=== PATIENT | male | born 1980 | race Caucasian/White ===

== ENCOUNTER → 2018-01-31 09:04 | Outpatient (REF) | payer SELFPAY | LOC: OM 09:04 | PROVIDERS: PCP Family Medicine; Visit Provider Nurse Practitioner Family | DX: Z02.83 Encounter for blood-alcohol and blood-drug test (principal) ==

== ENCOUNTER 2024-01-13 10:35 | Emergency (ER) | payer OTHER, SELFPAY ==
[2024-01-13] VITALS (34 sets, daily range): BP systolic 117–162; BP diastolic 62–99; PULSE 40–64; RESP 10–23; TEMP 2.4–37; O2SAT 98–100
--- NOTE | 2024-01-13 10:30 | RT.EKG_ITS ---
APPROVED REPORT Exam: Resting ECG Reason for Exam: Altered mental status Patient Location: E HR:43 bpm ECG Measurements Heart Rate 43 AXIS TX 162 P 55 QRSd 87 QRS 59 QT 461 T 62 QTc 389 Conclusion Sinus bradycardia...rate< 60
--- NOTE | 2024-01-13 10:44 | ED.GENADUL_ITS ---
Discharge Plan Disposition Patient Disposition: Transfer-Acute Inpatient Care Specific Acute Inpt Facility: [facility] Condition: Critical Discharge Details Clinical Impression: Intracranial bleed Primary Care Provider: Unknown,Unknown ED Provider: Gregoria Cutler Home Meds and New Rx's Prescriptions: No Action ibuprofen [Advil Liqui-Gel] 200 MG capsule 400 mg PO DAILY naproxen 500 mg tablet 500 mg PO QD-BID PRN Discharge Data Discharge Date/Time-TO BE ENTERED AT DEPARTURE: 01/13/24 14:15 HPI <Gregoria Cutler NP - Last Filed: 01/13/24 16:25> General Mode of arrival: EMS . Date/Time Provider Initiated Documentation: 01/13/24 10:43 . Limitations to Documentation: altered mental status (ANO x 3 however slow to respond) . Information obtained by: patient, EMS, RN notes reviewed and old records reviewed . HPI Narrative: 43-year-old male presents to the ER with chief complaint of altered mental status via EMS. Per EMS report patient's mother concerned that he is altered and slow to respond over the last couple of days. He does have a history of migraine headaches over the last year and a history of a AV malformation he reports worsening headaches over the last couple of days. He also reports blurry vision to his left eye. Denies any chest pain fever chills shortness of breath nausea vomiting no recent head injuries. On exam no focal motor neurodeficits noted, no facial droop, EOMs intact, no nystagmus noted, no pronator drift, no leg drop distal sensation intact. Intact dorsal pedal flexion and extension. Patient received 500 cc normal saline prior to arrival by EMS, 18-gauge left AC initiated, BGL is 119 [employer]. Initial presentation it does appear thin, slightly cachectic and dry mucous membranes. No signs of trauma. Related Data Home Medications ?Medication ?Instructions ?Recorded ?Confirmed ibuprofen 200 mg capsule (Advil 400 mg PO DAILY 01/12/15 01/13/24 Liqui-Gel) naproxen 500 mg tablet 500 mg PO QD-BID PRN 01/13/24 01/13/24 Allergies Allergy/AdvReac Type Severity Reaction Status Date / Time lactose AdvReac Other (See Unverified 01/13/24 13:00 Comment) General Stated Complaint: AMS/LOC ERNESTINA: 3 Review of Systems <Gregoria Cutler NP - Last Filed: 01/13/24 16:25> All systems reviewed & are unremarkable except as noted in HPI and below Constitutional Constitutional: Reports as per HPI, Reports headache(s), Reports poor appetite and Denies weakness Eyes Eyes: Reports blurry vision and Denies loss of vision ENT Ears, Nose, Mouth, and Throat: Reports as per HPI, Denies dizziness, Denies otalgia, Reports headache(s) and Denies disequilibrium Cardiovascular Cardiovascular: Denies chest pain, Denies syncope and Denies dyspnea Respiratory Respiratory: Denies cough, Denies dyspnea, Denies stridor and Denies wheezing Gastrointestinal Gastrointestinal: Denies abdominal pain, Denies diarrhea, Denies nausea and Denies vomiting Genitourinary Genitourinary: Denies dysuria Musculoskeletal Musculoskeletal: Denies abnormal gait and Denies tingling Neurologic Neurologic: Reports as per HPI, Denies abnormal gait, Reports behavioral changes, Denies dizziness, Denies syncope, Reports headache(s), Denies lack of coordination, Denies localized weakness, Denies loss of vision, Reports memory loss, Reports other visual disturbances, Denies radicular pain, Denies tingling, Denies paresthesias, Denies disequilibrium and Denies weakness Psychiatric Psychiatric: Reports behavioral changes and Reports memory loss Allergic/Immunologic Allergic/Immunologic: Denies wheezing Exam <Gregoria Cutler NP - Last Filed: 01/13/24 16:25> Narrative Exam Narrative: Constitutional: Alert and oriented x3, slightly slow to respond. Appears stated age. Very thin body habitus. Head: Normocephalic, no trauma. Eyes: Pupils PERRL, Red reflex noted, EOM's intact. Eyelids symmetrical without lesions, discharge, or swelling. ENT: Bilateral TMs unable to be visualized due to cerumen impaction, external ear normal to inspection, no mastoid TTP, swelling, or erythema, Nasal turbinates WNL, no nasal discharge. Normal dentition, Posterior pharynx WNL, no exudate. Dry mucous membranes. Chest: RRR, Normal S1, S2, distal pulses intact. Resp: Lungs clear to auscultation bilaterally, no wheezes, rales, or rhonchi. Abdomen: Soft, non-distended, Normoactive bowel sounds all 4 quads. Musculoskeletal: Normal gait, Moves all 4 extremities without difficulty. Skin: Capillary refill less than 2 sec. Neurologic: Cranial nerves II-XII intact. Alert and oriented x 3. Motor: No deficits noted. Sensory: Intact bilaterally all 4 extremities. No pronator drif t, no leg drop, intact distal sensation bilaterally, telephone maintainer equal bilaterally, Hematologic/Lymphatic: No ecchymosis, no lymphadenopathy. Course <Gregoria Cutler NP - Last Filed: 01/13/24 16:25> Vital Signs Vital signs: Respiratory Effort Normal 01/13/24 10:41 Oxygen Delivery Method Room Air 01/13/24 10:36 Oxygen Flow Rate 0 01/13/24 10:36 Pain Level 7 01/13/24 10:36 Comment took pain reliever this morning but he doesn't know what it was 01/13/24 10:36 Medical Decision Making <Gregoria Cutler NP - Last Filed: 01/13/24 16:25> 43-year-old male presents to the ER with chief complaint of altered mental status via EMS. Per EMS report patient's mother concerned that he is altered and slow to respond over the last couple of days. He does have a history of migraine headaches over the last year and a history of a AV malformation he reports worsening headaches over the last couple of days. He also reports blurry vision to his left eye. Denies any chest pain fever chills shortness of breath nausea vomiting no recent head injuries. On exam no focal motor neurodeficits noted, no facial droop, EOMs intact, no nystagmus noted, no pronator drift, no leg drop distal sensation intact. Intact dorsal pedal flexion and extension. Patient received 500 cc normal saline prior to arrival by EMS, 18-gauge left AC initiated, BGL is 119 [employer]. Initial presentation it does appear thin, slightly cachectic and dry mucous membranes. No signs of trauma. Workup ordered including EKG, troponin, CBC CMP magnesium, tick and Lyme panel, UDS, alcohol, liter normal saline TSH with refractory T4. CT brain without contrast and CTA brain ordered. Differential diagnose includes but not limited to CVA, substance use, dehydration, Lyme, Critical result of head CT call from radiologist large left frontal bleed measuring approximately 5 cm x 4 x 3 with surrounding edema and swelling with a positive shift. 1132: [facility] [place] for transfer request, 1 g of Keppra IV piggyback ordered, mannitol bolus and instructed staff weapons officer to have a head of bed at 30 degrees. Mom is at bedside. I did discuss results with family and patient who verbalized understanding. Prabhakar ordered. Patient reevaluation he is complaining of 6 out of 10 headache, slight photosensitivity, continues to be ANO x 4, no worsening motor neurodeficits noted. Currently blood pressure is 122/70, HR 47, 19 RR, 1243: Spoke with Manny LUGO with Neuro surgery, discussed patient case and details with him, he reports will discuss with Neuro Surg fellow, and call back. 1244: Images pushed to [facility]. 1255: [facility] transfer center called, for transfer request. Awaiting call back from Neuro surgery. 1304: Dr. Mills with Neuro surg discussed patient case and details, she agre es to accept patient. She recommends cap SBP 160, Nicardipine gtt if needed or labetolol, no further recommendations. Bed confirmed. [facility] to be here ETA 30 min. [facility] air here patient transported in hemodynamically stable condition. Blood pressure at the time of discharge 145/85, O2 sat 99 no significant change in his neurologic status. Family aware of plan of care verbalized understanding. This text was generated using [employer] dictation system, please disregard any oddities of phrase or misspellings. Imaging Data Radiologic Study: Imaging: CT Scan Radiologist's impression: EXAM: CT HEAD WO CLINICAL HISTORY: Hx of AV malformation. TECHNIQUE: Imaging Protocol: Axial computed tomography images with coronal and sagittal reformatted images were created and reviewed COMPARISON: CT CTA BRAIN AND NECK from 12/28/2017 CT HEAD WITHOUT CONTRAST from 12/28/2017 FINDINGS: There are no skull fractures. There is no fluid in the visualized paranasal sinuses. There is a large area of intra-axial hemorrhage within the left frontal lobe, this being the side opposite of the previously documented vascular malformation as seen on CT angio study of December 2017. That AVM was in the right frontal lobe. There is no acute hemorrhage around the AVM in the right frontal lobe. Today's study reveals a large intra-axial hyperdense hemorrhage in the left frontal lobe with surrounding edema. The measurement of the hemorrhage is 6.5 cm AP (sagittal images) x 3 cm wide by 4.5 cm craniocaudal. There is surrounding edema with effacement of sulci and effacement of the adjacent left lateral ventricle. Mild shift of midline structures, approximately 3 mm at this level. There is no evidence of acute hemorrhage in the right frontal lobe where the vascular malformation is evident, as best previously documented on CTA study of December 2017. There is no evidence of hemorrhage in the posterior fossa. IMPRESSION: Large left frontal lobe intra-axial hemorrhage measuring 6.5 cm x 3 cm x 4.5 cm and with surrounding edema, effacement of sulci and left lateral ventricle and mild shift.. Please note that this hemorrhage is in the left frontal lobe and not the right frontal lobe. Imaging studies revealed a significant vascular malformation in the right frontal lobe. In reviewing prior CT angio study of December 2017 there did not appear to be an AVM in this region nor left-sided aneurysm. Lab Data Lab results reviewed: Yes I reviewed the patient's lab results. Labs: Laboratory Tests Range/Units 01/13/24 10:59 WBC (4.4-10.8) 10^3/uL 13.83 H RBC (4.36-5.78) 10^6/uL 4.58 Hgb (13.5-17.5) g/dL 14.1 Hct (40.0-50.0) % 41.2 MCV (80-95) fL 90 MCH (27.0-33.0) pg 30.8 MCHC (32.0-36.0) % 34.2 RDW (11.8-14.1) % 13.6 Plt Count (130-400) 10^3/uL 351 MPV (8.0-11.0) fL 8.7 Immature Gran % % 0.5 Neutrophils % % 84.3 Lymphocytes % % 9.9 Monocytes % % 5.0 Eosinophils % % 0.1 Basophils % % 0.2 Nucleated RBC % (0.0-0.3) % 0.0 Absolute Neutrophils (1.2-6.7) 10^3/uL 11.66 H Absolute Lymphocytes (1.2-3.4) 10^3/uL 1.37 Absolute Monocytes (0.1-0.8) 10^3/uL 0.69 Absolute Eosinophils (0.0-0.7) 10^3/uL 0.01 Absolute Basophils (0.0-0.2) 10^3/uL 0.03 Sodium (136-145) mmol/L 143 Potassium (3.5-5.1) mmol/L 4.2 Chloride (98-107) mmol/L 106 Carbon Dioxide (21.0-32.0) mmol/L 28.3 Anion Gap (3-11) mmol/L 8.7 BUN (7-18) mg/dL 29 H Creatinine (0.70-1.30) mg/dL 1.0 Est GFR (CKD-EPI 2020) (mL/min/1.73m2) 96.97 Glucose (74-106) mg/dL 116 H Calcium (8.5-10.1) mg/dL 9.0 Magnesium (1.8-2.4) mg/dL 1.9 Total Bilirubin (0.2-1.0) mg/dL 0.87 AST (15-37) U/L 14 L ALT (16-63) U/L 24 Alkaline Phosphatase (46-116) U/L 70 Troponin I (< or =60) ng/L < 50 Total Protein (6.4-8.2) g/dL 8.2 Albumin (3.4-5.0) g/dL 3.6 TSH (0.36-3.74) uIU/mL 0.80 Ethyl Alcohol (<10) mg/dL < 3.0 Quality:SDOH Health Related Social Needs: No Data to Display <Carson Dejesus MD - Last Filed: 01/14/24 09:15> Date: 01/13/24 Time: 12:08 Note: Patient seen, examined, and discussed with JONATHAN Cutler. I agree with treatment plan as discussed/documented. Plan to treat with Keppra 1 g, mannitol bolus given edema with midline shift and altered mental status, head of bed 30 degrees. 1208 -- I called [facility] [place]. Awaiting neurosx review. Critical Care Time <Gregoria Cutler NP - Last Filed: 01/13/24 16:25> Critical Care Time Critical Care Time: Yes Total Critical Care Time: 60 Attestation: I spent greater than 35 minutes addressing this patient's acute life threatening illness. This time was spent engaged in actions directly related to the patient's care. Failure to initiate these interventions would have likely resulted in clinically significant or life threatening deterioration in the patients condition. PFSH <Gregoria Cutler NP - Last Filed: 01/13/24 16:25> All Active Problems (Updated 01/13/24 @ 13:14 by Gregoria Cutler NP) Intracranial bleed (Acute) Surgical History (Updated 03/05/15 @ 14:27 by Enedina Barajas) LUMBAR ERNESTINA (06/11/11) EXE CYST ON NECK (03/01/15) Dr. Narendra Phelan Social History Smoking/Tobacco Use Status: Former Tobacco Use Smoking risk assessment performed?: Yes Alcohol Intake: current Drug use: Never Do you feel safe in your relationship?: Yes
--- NOTE | 2024-01-13 10:45 | DI.CT_ITS ---
Exam(s) CT HEAD WO EXAM: CT HEAD WO CLINICAL HISTORY: Hx of AV malformation. TECHNIQUE: Imaging Protocol: Axial computed tomography images with coronal and sagittal reformatted images were created and reviewed COMPARISON: CT CTA BRAIN AND NECK from 12/28/2017 CT HEAD WITHOUT CONTRAST from 12/28/2017 FINDINGS: There are no skull fractures. There is no fluid in the visualized paranasal sinuses. There is a large area of intra-axial hemorrhage within the left frontal lobe, this being the side opp osite of the previously documented vascular malformation as seen on CT angio study of December 2017. Chay t AVM was in the right frontal lobe. There is no acute hemorrhage around the AVM in the right fronta l lobe. Today's study reveals a large intra-axial hyperdense hemorrhage in the left frontal lobe wit h surrounding edema. The measurement of the hemorrhage is 6.5 cm AP (sagittal images) x 3 cm wide by 4.5 cm craniocaudal. There is surrounding edema with effacement of sulci and effacement of the emily cent left lateral ventricle. Mild shift of midline structures, approximately 3 mm at this level. There is no evidence of acute hemorrhage in the right frontal lobe where the vascular malformation is evident, as best previously documented on CTA study of December 2017. There is no evidence of hemorrhage in the posterior fossa. IMPRESSION: Large left frontal lobe intra-axial hemorrhage measuring 6.5 cm x 3 cm x 4.5 cm and with surrounding edema, effacement of sulci and left lateral ventricle and mild shift.. Please note that this hemorrhage is in the left frontal lobe and not the right frontal lobe. Imaging studies revealed a significant vascular malformation in the right frontal lobe. In reviewing prior CT angio study of December 2017 there did not appear to be an AVM in this region nor l eft-sided aneurysm. Called by myself to ER provider upon completion of this study. RADIATION DOSE DELIVERED: Total DLP DATA REPOSITORY: All CT scans at this facility are submitted to the National Radiology Data Registry (NRDR) Dose Index Registry (DIR) with the [employer] (ACR). RADIATION OPTIMIZATION: All CT scans at this facility use at least one of these dose optimization te chniques: automated exposure control; mA and/or kV adjustment per patient size (includes targeted exa ms where dose is matched to clinical indication); or iterative reconstruction.
[2024-01-13] MEDS: Normal Saline 1,000 ML 1000 ML IV (11:04)
[2024-01-13 11:08] LABS: Abs Immature Grans 0.07 10^3/uL (0.0-0.06); Absolute Basophil Count 0.03 10^3/uL (0.0-0.2); Absolute Eosinophil Count 0.01 10^3/uL (0.0-0.7); Absolute Lymphocyte Count 1.37 10^3/uL (1.2-3.4); Absolute Monocyte Count 0.69 10^3/uL (0.1-0.8); Absolute Neutrophil Count 11.66 10^3/uL (1.2-6.7); Basophils % 0.2 %; Eosinophils % 0.1 %; HCT 41.2 % (40.0-50.0); HGB 14.1 g/dL (13.5-17.5); Immature Grans % 0.5 %; Lymphocytes % 9.9 %; MCH 30.8 pg (27.0-33.0); MCHC 34.2 % (32.0-36.0); MCV 90 fL (80-95); MPV 8.7 fL (8.0-11.0); Neutrophils % 84.3 %; Platelet Count 351 10^3/uL (130-400); RBC 4.58 10^6/uL (4.36-5.78); RDW 13.6 % (11.8-14.1); RDW-SD 44.2 fL; WBC 13.83 10^3/uL (4.4-10.8)
[2024-01-13] MEDS: Normal Saline - Diluent 50 ML VIAL IJ (11:19)
[2024-01-13] MEDS: Omnipaque 350 MG/ML 100 ML BTL IJ (11:21)
[2024-01-13 11:44] LABS: ALT 24 U/L (16-63); AST 14 U/L (15-37); Albumin 3.6 g/dL (3.4-5.0); Alkaline Phosphatase 70 U/L (46-116); Anion Gap 8.7 mmol/L (3-11); BUN 29 mg/dL (7-18); Bilirubin, Total 0.87 mg/dL (0.2-1.0); CO2 28.3 mmol/L (21.0-32.0); Chloride 106 mmol/L (98-107); Estimated GFR 96.97 (mL/min/1.73m2); Glucose 116 mg/dL (74-106); Magnesium 1.9 mg/dL (1.8-2.4); Potassium 4.2 mmol/L (3.5-5.1); Sodium 143 mmol/L (136-145); Total Protein 8.2 g/dL (6.4-8.2); Troponin I < 50 ng/L (< or =60)
[2024-01-13] MEDS: levETIRAcetam 1,000 MG in Normal Saline 100 ML 400 MG IVPB (11:45)
[2024-01-13 11:51] LABS: ETHANOL BLOOD < 3.0 mg/dL (<10)
[2024-01-13 12:15] LABS: Bilirubin Negative (Negative); Blood Small (Negative); Clarity Clear (Clear); Glucose Negative (Negative); Ketones 15 mg/dL (Negative); Leukocyte Esterase Negative (Negative); Nitrite Negative (Negative); Specific Gravity >= 1.030 (1.005-1.025)
[2024-01-13 12:26] LABS: *AMPHETAMINES SCREEN URINE Negative (Negative); *BARBITURATES SCREEN URINE Negative (Negative); *BENZODIAZEPINES SCREEN URINE Negative (Negative); Cannabinoids THC Positive (Negative); Cocaine Screen,Urine Negative (Negative); METHADONE URINE SCREEN Negative (Negative); OPIATES URINE SCREEN Negative (Negative)
[2024-01-13 12:29] LABS: Tricyclic Antidepressants Negative (Negative)
[2024-01-13 12:37] LABS: C & S Indicated? No; Epithelial Cells Rare HPF (Negative); Mucus Moderate (Negative); WBC 0-2 HPF (0-5)
--- NOTE | 2024-01-13 13:34 | NUR.NOTE ---
11:40am head of bed at 30* with seizure pads placed on stretcher Nursing Note:
[2024-01-14 13:18] LABS: Lyme Ab w Rflx to Lyme Confirm Negative (Negative)
[2024-01-16 09:46] LABS: Anaplasma phagocytophilum Negative (Negative); B. miyamotoi PCR Negative (Negative); Babesia divergens/MO-1 Negative (Negative); Babesia duncani Negative (Negative); Babesia microti Negative (Negative); Ehrlichia chaffeensis Negative (Negative); Ehrlichia ewingii/canis Negative (Negative); Ehrlichia muris eauclairensis Negative (Negative)
== END 2024-01-13 14:15 | disposition short-term general hospital (02) ==
LOC: ER 14:39
PROVIDERS: Emergency Provider Registered Nurse Emergency
DX: I61.9 Nontraumatic intracerebral hemorrhage, unspecified (principal); Q28.2 Arteriovenous malformation of cerebral vessels; R51.9 Headache, unspecified
CPT/HCPCS: 36415; 80053; 80307; 87798; 93005; 96361; 96365; 96367; 99285; 70450; 80320; 81003; 81015; 83735; 84443; 84484; 85025; 86618; 93010; J1953; J3490